=== PATIENT | male | born 1930 | race African-American/Black ===

== ENCOUNTER → 2018-07-29 | Outpatient (CLI) | payer MEDICARE, OTHER ==
[~2018-07-29] MED LIST: ASPI-556 PO; FOSI10TA4 PO; GLIP5TAB11 PO; HYDR25TA PO; METF-444 PO; POTA25TA7 PO; PRIM50TA29 PO; SIMV80TA91 PO; VERA120T90 PO
[2018-07-29 11:31] LABS: CREATININE 1.42 mg/dL (0.60-1.30)
== END | disposition home or self-care (01) ==
LOC: LABPV 10:06
PROVIDERS: ATTEND Specialist
DX: I66.8 Occlusion and stenosis of other cerebral arteries (principal)
CPT/HCPCS: 82565; 84520

== ENCOUNTER → 2018-08-06 | Outpatient (CLI) | payer MEDICARE, OTHER | END | disposition home or self-care (01) | LOC: RADMN 09:37 | PROVIDERS: ATTEND Specialist | DX: I66.8 Occlusion and stenosis of other cerebral arteries (principal) | CPT/HCPCS: 70544 ==